=== PATIENT | female | born 1975 ===

== ENCOUNTER 2018-07-07 05:31 | Day surgery (SDC) | payer OTHER ==
--- NOTE | 2018-07-06 20:52 | PDGENHP ---
History and Physical - Chief Complaint RIGHT HIP PAIN - History of Present Illness 1. History of Right LUIS ENRIQUE 2. Right Hip Pain HISTORY OF PRESENT ILLNESS: Gais a~43 y.o.~very~~active~female~who I have had the pleasure to consult on today.~I have enjoyed meeting her.~Portia~lives in [place].~~Ga works as a preschool educator.~~She~is ;~she~has 2~children. ~Ga enjoys running~and~[employer]. Danyelle's~right~hip pain started~a year ago,~initially with lower back pain,~ with no~recalled trauma or injury, and with~no~previous complaints.~Gahas ~a known history of hip dysplasia. She was seen by Dr. Vale who referred her for the possibility of surgical intervention for Hip Dysplasia. Presentation today is of~anterior, posterior~right~hip pain. ~The hip~does~wake her~at night and~does not~click and catch on~her. Sitting~can be uncomfortable~ for her.~Gadoes~report suffering from lower back pain episodes.~~Portia~ reports having~a history of an~RFA of lumbar spine. Gahas not~participated in physical therapy and has not~tried other conservative measures. Gahas~utilized medication for pain management, including NSAID.~Ga has used medication since the pain began. Gahas~issues with the left~hip.~~ Gaunderstands that~portia~has a hip and pelvis problem which should be researched and wishes to get a better understanding of~her~hip status, followed by an establishment of a treatment strategy, hoping~portia~would be able to get back to~her~well being active life. History: Past medical history:~~ Non-contribuatory Relevant familial history:~Daughter has hip dysplasia Past surgical history:~ No. Surgery Anesthesia 1 Vocal chord polyps general 2 Umbilical hernia general 3 Right wrist general ~~~~~~~~4 ~~~~~~~~~~~~~~~~~~~ ~~~~~~~~~~~~~~~~~~~~~~~~~~~~~~epidural 5. Right Hip arthroscopy 6. Right LUIS ENRIQUE Danyelle~denies problematic issues with general anesthesia in the past. I have reviewed, verified and agree with the past medical, surgical, family and social history. Current Medications:~has a current medication list which includes the following prescription(s): fexofenadine hcl and montelukast sodium. ALLERGIES:~has No Known Allergies. Objective: Physical Examination: Gais 5~feet~0~inches tall and weighs~118~Lbs. Gais AAO x3; she~is well-nourished, in NAD. Skin is warm and dry. ~Breathing is non-labored. ~CV with RRR by pulse. Abdomen is soft, NTND. Currently,~she~walks with a~normal~gait. Trendelenburg sign is~negative~and proprioception~is reduced,~right~side. She~presents~with moderate~signs of joint laxity.~Beightons Score:~5 Lower spine examination is~negative~for sciatic or femoral nerve irritation with negative~SLR &~femoral stretch tests. Range of motion of the spine is normal~for flexion, extension, and rotations,~with no~associated pain. Strength, Sensation and pulses are~normal -~bilaterally Ankles and knees exams are~normal~and~no~mal-alignment is evident.~ She~has~no leg length discrepancy. Thigh circumference is~symmetric~with no evidence for muscle atrophy~on both~ sides. Hip ROM (degrees): FL ER At 90~hip FL IR At 90~hip FL AB AD EX IR Neutral hip ER Neutral hip R 110 40 50 50 5 10 70 40 L 110 50 35 45 5 10 55 50 Specific hip and pelvis tests: Impingement Test FREDDIE Roll Add. Longus R +++ +++ + + L ++ ++ Negative Negative Glut. Med ITB R +++ 5/5 strength +++ 5/5 strength L Negative 5/5 strength Negative 5/5 strength Squeeze test measured~normal Bony Symphysis pubis is~pain free~to touch while concentric activity of the rectus abdominis, does not~produce pain at its insertion. Ilio Psos specific tests are~positive for pain during cycling for~the right hip~ and remarkable for non painful snap Anterior~capsule tenderness RIGHT HIP Greater trochanteric burse is~painful~on both hips. Piriformis tests: FAIR is~negative~with no~local signs of neuritis related to sciatic nerve. SIJs examination is~produces pain on~left side~with~normal~FREDDIE in relation and local tenderness. Hamstrings tests are~negative~functional contraction and negative~tendinopathy both hips. Imaging: Radiology studies which I~have personally reviewed, analyzed and measured are below: XR: AP of the hip and pelvis: Performed in a~good~technique Coccyx to pubic symphysis distance~0.6~cm. 10~degrees caudal [place]~Lines are preserved. Minimal~Pathological signs are seen in the Symphysis Pubis.~ Minimal~Pathological signs are seen at the Ischial~tuberosity. ~ Specific measurements show: NSA~ LCE Sourcil~Angle Sharp's angle Lat. Cam Lat. Pincer C.Over~sign Head~Coverage % ATDmm R N 24 13 45 + - 12-12:30 72 N L N 24 12 39 + - 12-12:30 77 N Pos. wall sign ISS NAD ~~Dysplasia Comments R Negative Negative 20.3~mm ++ L Negative Negative 20.5~mm ++ Sclerosis Sup. Lat. OA Cysts Joint Space-WBZ Joint Space-Medial R Negative Negative Negative 5.1~mm 3.9~mm L Negative Negative Negative 5.3~mm 3.5~mm X Table lateral: Anterior cam lesion is~seen~on both hips. Alpha Angle: ~ Right~50~dergrees Left~51~degrees Right Hip~MRI shows:~good cartilage quality, large labrum with~tear, anterior sub chondral edema. 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 Physical examination, imaging, and~her~story correspond with the diagnosis mentioned above. I explained that hip dysplasia is a condition wherein the hip joint has excessive play~and instability due to a variety of factors, including the depth and adequacy of the socket, the orientation of the femur bone, and ligament laxity around the hip joint. Dysplasia ranges in severity from borderline to kamaljit, with treatment options being specific to the specific nature of the problem. Left untreated, the instability in the hip joint can cause progressive tearing of the labrum and deterioration of the surface cartilage, ultimately resulting in progressive osteoarthritis of the hip. I explained that femoroacetabular impingement (JARETH - Cam type) arises due to a bony or soft tissue conflict between the femur (ball) and acetabulum (socket) caused by an abnormality in the shape of the femoral head and neck. Over time, repetitive impingement can result in damage to the labrum and adjacent surface cartilage within the socket, ultimately giving rise to progressive osteoarthritis of the hip. I explained that although a labral tear can be a source of pain, it is rarely the root of the problem and typically occurs secondary to an underlying abnormality in the shape and mechanics of the hip joint. I reviewed conservative treatment options for Dysplasia and JARETH including activity modification to avoid positions of impingement or instability, physical therapy, non-steroidal anti-inflammatory medications, and various injections (corticosteroid and PRP) aimed at reducing inflammation in the hip joint or/and preventing dynamic instability and impingement. PRP injections may promote healing and reduce symptoms in certain cases but it will not repair chronically damaged tissue. Although these measures may help to buy time~and reduce current level of symptoms, they are not a definitive solution to the problem given the underlying abnormality in the shape of the hip joint. Patients who have failed conservative management and continue to experience symptoms are candidates for definitive surgical treatment, which may consist of hip arthroscopy alone or in combination with more invasive bony realignment procedures of the hip socket and/or femur called periacetabular osteotomy (LUIS ENRIQUE) or derotational femoral osteotomy (DFO). Hip arthroscopy typically includes treating the labrum with either repair or reconstruction of the torn labrum; as well as addressing the underlying abnormalities by restoring the normal shape to the hip joint. If the cartilage is damaged a Microfracture surgical procedure may also be necessary to help stimulate the growth of fibrocartilage. If a patient requires a labral reconstruction or a Microfracture, the initial rehabilitation from the surgery may take longer, but the watermelon inspector results are typically favorable. I reviewed the technical aspects of periacetabular osteotomy (LUIS ENRIQUE) including risks, benefits, and expected course of recovery.~Danyelle~understands that LUIS ENRIQUE is an inpatient procedure carried out through two medium sized incisions on the front and back of the hip joint. The hip socket is cut, realigned, and stabilized with 2 3 internal screws. Risks include infection, bleeding, injury to nearby nerves or vessels, stiffness, persistent pain, instability, failure of bony healing, implant related complications, and venous thromboembolic disease. Rarely, revision surgery may be required to address these problems. Risks, potential complications, side effects and recovery from surgical procedure were discussed in length. We explained how this surgery is an open procedure, and though patients tend to do well in the long-term, it involves significant pain in the first 2-4 weeks post-op and a rather lengthy rehab.~Overall recovery takes approximately 6 12~months depending on the extent of damage and degree of repair. Gaunderstands that she~will undergo hip arthroscopy 1 week prior to the LUIS ENRIQUE to address damage inside the hip joint. Gaunderstands that hip arthroscopy and LUIS ENRIQUE are two separate procedures that are best performed one week apart, with the arthroscopy done with Dr Vale~commencing first to "tighten up" any pathology evident in the hip joint (labral repair, etc.) and the LUIS ENRIQUE open procedure occurring 7-10 days later to realign the acetabulum. Gawill review the info presented. In order to obtain more detailed information regarding the alignment, orientation, and shape of the bony hip and pelvis I will order a CT scan to be performed. The results of the CT scan, including femoral torsion and acetabular version measured values and 3D images, will aid me in deciding on the best treatment strategy and surgical pre-planning. Gawill contact us if she~wishes to pursue further treatment in the future. Gais happy with this plan. I wish~DanyelleGriseldaall the best, ~~ Reyes Mack, PAC History Information - Allergies/Home Medication List Allergies/Adverse Reactions: No Known Allergies Allergy (Verified 06/16/18 11:33) Home Medications: Lisinopril 06/16/18 [Last Taken Unknown] Omeprazole 06/16/18 [Last Taken Unknown] I have personally reviewed and updated: medical history - Social History Smoking Status: Former smoker Review of Systems Review of Systems: Physical Exam Physical Exam:
[2018-07-07] MEDS ORDERED: ACETAMINOPHEN 500 MG TAB PO ONE (05:57)
[2018-07-07] MEDS ORDERED: ceFAZolin 2 GM/DEXTROSE 100 ML IV ONE (05:57)
[2018-07-07] MEDS ORDERED: PREGABALIN 150 MG CAP PO ONE (05:57)
[2018-07-07] MEDS ORDERED: LR 1,000 ML IV ONE (05:58)
[2018-07-07] MEDS ORDERED: LIDOCAINE 1% 300 MG/30 ML SDV ONE (07:32)
[2018-07-07] MEDS ORDERED: MIDAZOLAM 2 MG/2 ML VIAL IVP ONE (08:03)
--- NOTE | 2018-07-07 08:04 | PDANEPAE ---
ANE History of Present Illness right hip hardware ANE Past Medical History - Cardiovascular History Hx Hypertension: Yes Hx Arrhythmias: No Hx Chest Pain: No Hx Coronary Artery / Peripheral Vascular Disease: No Hx CHF / Valvular Disease: No Hx Palpitations: No - Pulmonary History Hx COPD: No Hx Asthma/Reactive Airway Disease: No Hx Recent Upper Respiratory Infection: No Hx Oxygen in Use at Home: No Hx Sleep Apnea: No Sleep Apnea Screening Result - Last Documented: Negative - Neurologic History Hx Cerebrovascular Accident: No Hx Seizures: No Hx Dementia: No - Endocrine History Hx Diabetes: No Hypothyroid: No Hyperthyroid: No Obesity: no - Renal History Hx Renal Disorders: No - Liver History Hx Hepatic Disorders: No - Neurological & Psychiatric Hx Hx Neurological and Psychiatric Disorders: No - Cancer History Hx Cancer: No - Congenital Disorder History Hx Congenital Disorders: No - GI History GERD: mild Hx Gastrointestinal Disorders: Yes Gastrointestinal History Comment: acid reflux - Other Health History Other Health History: none - Chronic Pain History Chronic Pain: No - Surgical History Prior Surgeries: double hernia repair ANE Review of Systems Review of systems is: negative Review of Systems: - Exercise capacity Exercise capacity: >=4 METS METS (RN): 5 METS ANE Patient History - Allergies Allergies/Adverse Reactions: No Known Allergies Allergy (Verified 06/16/18 11:33) - Home Medications Home medications: home medication list seen and reviewed Home Medications: Lisinopril 06/16/18 [Last Taken 07/06/18 07:30] Omeprazole 06/16/18 [Last Taken 07/06/18 07:30] - NPO status NPO Status: no food or drink >8 hours NPO Since - Liquids (Date): 07/06/18 NPO Since - Liquids (Time): 17:00 NPO Since - Solids (Date): 07/06/18 NPO Since - Solids (Time): 17:00 - Anes Hx Anes Hx: post operative nausea and vomiting - Smoking Hx Smoking Status: Former smoker - Family Anes Hx Family Hx Anesthesia Complications: none ANE Labs/Vital Signs - Vital Signs Vital Signs: reviewed preoperatively; see RN documention for details Blood Pressure: 126/81 Heart Rate: 81 Respiratory Rate: 16 O2 Sat (%): 97 Height: 152.4 cm Weight: 53.524 kg ANE Physical Exam - Airway Neck exam: FROM Mallampati Score: Class 1 Mouth exam: normal dental/mouth exam - Pulmonary Pulmonary: no respiratory distress - Cardiovascular Cardiovascular: regular rate and rhythym - ASA Status ASA Status: II ANE Anesthesia Plan Anesthesia Plan: GA w LMA
[2018-07-07] MEDS ORDERED: PROPOFOL/EMULSION 500 MG/50 ML BOTTLE IV ONE (08:09)
[2018-07-07] MEDS ORDERED: PROPOFOL 200 MG/20 ML VIAL ONE (08:09)
[2018-07-07] MEDS ORDERED: LIDOCAINE 2% 5 ML SDV ONE (08:13)
[2018-07-07] MEDS ORDERED: DEXAMETHASONE 4 MG/ML VIAL ONE ×2 (08:14)
[2018-07-07] MEDS ORDERED: fentaNYL 100 MCG/2 ML INJ ONE (08:31)
[2018-07-07] MEDS ORDERED: ONDANSETRON 4 MG/2 ML VIAL ONE (08:31)
[2018-07-07] MEDS ORDERED: KETOROLAC 30 MG/1 ML SDV ONE (08:48)
[2018-07-07] MEDS ORDERED: LR 500 ML IV PRN (09:10)
[2018-07-07] MEDS ORDERED: NALOXONE HCL 0.4 MG/ML INJ IVP PRN (09:10)
[2018-07-07] MEDS ORDERED: METOCLOPRAMIDE 10 MG/2 ML VIAL IVP PRN (09:10)
[2018-07-07] MEDS ORDERED: ALBUTEROL 3 ML DEYVIAL IH PRN (09:10)
[2018-07-07] MEDS ORDERED: PROMETHAZINE HCL 25 MG/ML INJ IVP PRN (09:10)
[2018-07-07] MEDS ORDERED: PHENYLEPHRINE HCL 100 MCG/ML SYR IVP PRN (09:10)
[2018-07-07] MEDS ORDERED: MEPERIDINE 25 MG/0.5 ML AMP IVP PRN (09:10)
--- NOTE | 2018-07-07 09:12 | POSTANESTH ---
Post Anesthetic Evaluation Cardiovascular Status: Normal, Stable Respiratory Status: Normal, Stable Level of Consciousness/Mental Status: Can Participate in Eval Pain Control: Adequate, Prn Tx Ordered Nausea/Vomiting Control: Adequate, Prn Tx Ordered Complications Possibly Related to Anesthesia: None Noted
[2018-07-07 10:42] VITALS: BP 124/79
== END 2018-07-07 11:50 | disposition home or self-care (01) ==
LOC: FSGY 05:31
PROVIDERS: ATTEND Orthopaedic Surgery Sports Medicine
PROC: BQ101ZZ Fluoroscopy of Right Hip using Low Osmolar Contrast (ICD-10-PCS; principal; 2018-07-07 08:15)
PROC: 0QP204Z Removal of Internal Fixation Device from Right Pelvic Bone, Open Approach (ICD-10-PCS; principal; 2018-07-07 08:15)
DX: T84.84XA Pain due to internal orthopedic prosthetic devices, implants and grafts, initial encounter (principal); M25.551 Pain in right hip; I10 Essential (primary) hypertension; Z87.891 Personal history of nicotine dependence; Z98.890 Other specified postprocedural states
CPT/HCPCS: J0690; J1100; J1885; J2250; J2405; J2704; J3010